=== PATIENT | female | born 1985 | race Caucasian/White ===

== ENCOUNTER 2021-11-16 08:41 | Outpatient (CLI) | payer BC, SELFPAY ==
--- NOTE | 2021-11-16 08:15 | CRLHL7_ITS ---
For Patients: As a result of the Century Cures Act, medical imaging exams and procedure reports are released immediately into your electronic medical record. You may view this report before your referring provider. If you have questions, please contact your health care provider. Indication: Fertility testing Technique: Hysterosalpingogram performed. Fluoroscopic time 31 seconds. IMPRESSION: Normal endometrial canal and fallopian tubes with spillage into the peritoneal cavity bilaterally. Dictated by Mohinder Neil MD @ 11/16/2021 9:27:11 AM (Electronically Signed)
--- NOTE | 2021-11-16 09:16 | PM.PROC ---
Procedure Note Time Seen by Provider: 08:30 Date Seen: 11/16/21 Date of procedure: 11/16/21 Will [facility] bill your pro fee for this procedure?: Yes Pre-op diagnosis: Infertility Procedure Description: DATE: 11/16/2021 PREPROCEDURE DIAGNOSIS: Infertility POSTPROCEDURE DIAGNOSIS: 1. Infertility 2. [Patent/blocked] fallopian tubes bilaterally. NAME OF PROCEDURE: Hysterosalpingogram. ANESTHESIA: None. COMPLICATIONS: None. PROCEDURE: After obtaining verbal consent, the patient was placed in the dorsal lithotomy position on the x-ray table. An open-sided bivalve speculum was introduced into the vagina and the cervix easily visualized. The cervix and vagina were then prepped with Betadine Os binder/cervical dilator used: No. A balloon tipped double-lumen catheter was then gently inserted through the cervical opening into the uterine cavity to the level of the fundus. The balloon was insufflated with 3 mL of air. The speculum was removed. The patient was repositioned in the supine position, covered, and the radiologist was called to the room. A hysterosalpingogram was then performed. A total of 8 cc of Optiray 300 water soluble contrast dye was injected through the double-lumen catheter under moderate pressure. There was immediate fill of the uterine cavity to the cornua and immediate fill of both fallopian tubes and free spillage of dye on both sides. The balloon was deflated. The catheter was removed. The patient tolerated the procedure well, though she did have moderate cramping discomfort during and just after the procedure. She was discharged to home in stable condition and make an appointment with her physician to review all of her lab results and procedure results. Surgeon: Elise Robledo MD Pathology: none sent Condition: stable
== END 2021-11-16 08:42 | disposition home or self-care (01) ==
LOC: RAD 08:42
PROVIDERS: Visit Provider Registered Nurse
DX: Z31.41 Encounter for fertility testing (principal)
CPT/HCPCS: 58340; 74740; A4649; Q9967

== ENCOUNTER 2022-02-23 11:24 | Outpatient (CLI) | payer BC, SELFPAY ==
[2022-03-01 18:46] LABS: Progesterone, HPLC-MS/MS 22.62 ng/mL
== END 2022-02-23 11:25 | disposition home or self-care (01) ==
PROVIDERS: Visit Provider Obstetrics & Gynecology
DX: N97.0 Female infertility associated with anovulation (principal)
CPT/HCPCS: 84144

== ENCOUNTER 2023-04-05 09:50 | Outpatient (CLI) | payer OTHER, SELFPAY ==
--- NOTE | 2023-04-05 10:15 | CRLHL7_ITS ---
For Patients: As a result of the Cures Act, medical imaging exams and procedure reports are released immediately into your electronic medical record. You may view this report before your referring provider. If you have questions, please contact your health care provider. INDICATION: First trimester scan, establish dates. COMPARISON: None. TECHNIQUE: Real-time mahan-scale imaging of the pelvis was performed. FINDINGS: Sonographic imaging demonstrates a single living intrauterine gestation. The embryo demonstrates a regular cardiac rate measuring 169 beats per minute. The embryo`s crown-rump length measurement of 2.2 cm corresponds to a gestational age of 8 weeks 6 days with a sonographic due date of 11/09/2023. There is a normal-appearing yolk sac. There are no gross abnormalities noted within the embryo at this early state of development. The gestational sac has a normal appearance. There is no evidence of a perigestational hemorrhage. The amount of fluid within the sac appears appropriate for gestational age. The cervix is closed. The myometrium appears normal. Bilateral ovarian cysts containing diffuse low level internal echoes measuring 4.1 and 2.6 cm on the right and 4.7 and 2.4 cm on the left. There are no suspicious fluid collections noted in the cul-de-sac. IMPRESSION: Single living intrauterine with sonographic gestational age 8 weeks 6 days and sonographic due date 11/09/2023. Bilateral complex ovarian cysts, probable endometriomas. Dictated by Mohinder Neil MD @ 04/05/2023 10:56:55 AM (Electronically Signed)
== END 2023-04-05 09:51 | disposition home or self-care (01) ==
LOC: US 09:51
PROVIDERS: Visit Provider Physician Assistant
DX: Z34.91 Encounter for supervision of normal pregnancy, unspecified, first trimester (principal); O34.81 Maternal care for other abnormalities of pelvic organs, first trimester; N83.292 Other ovarian cyst, left side; N83.291 Other ovarian cyst, right side; Z3A.08 8 weeks gestation of pregnancy
CPT/HCPCS: 76817

== ENCOUNTER 2023-04-05 10:57 | Outpatient (CLI) | payer OTHER, SELFPAY ==
[2023-04-05 13:43] LABS: Chlamydia DNA Amplified* NOT DETECTED (No Detected); GC DNA Amplified* NOT DETECTED (No Detected)
== END 2023-04-05 10:58 | disposition home or self-care (01) ==
PROVIDERS: Visit Provider Physician Assistant
DX: Z34.91 Encounter for supervision of normal pregnancy, unspecified, first trimester (principal)
CPT/HCPCS: 86592; 86703; 86704; 86706; 86762; 86787; 86803; 86850; 86900; 86901; 87086; 87340; 87491; 87591

== ENCOUNTER 2023-08-22 09:21 | Outpatient (CLI) | payer OTHER, SELFPAY ==
--- OUTSIDE RECORDS SUMMARY | 2023-08-28 08:05 | XMS_ITS | Encounter Summary ---
Author Name Unknown Organization [facility] Address [address] [place] [id number] Care Team Providers Care Tennis Desk Team Member Name Role Phone No Ref-Primary, Physician Primary Care Provider Encounter Details Date Type Department Care Team (Latest Contact Info) Description 06/17/2023 Travel Social History Tobacco Use Types Packs/Day Years Used Date Smoking Tobacco: Never Assessed Alcohol Use Standard Drinks/Week Comments No 0 (1 standard drink = 0.6 oz pur e alcohol) Adolescent Education Answer Date Record ed Getting School Help Needed Not on file 05/31 Estimated Date of Delivery Comme nts Yes 11/10/2023 Based on last me nstrual period of 02/03/2023 Sex and Gender Information Value Date Recorded Sex Assigned at Not on file Gender Identity Not on file Sexual Orientation Not on file documented as of this encounter Plan of Treatment Not on file documented as of this encounter Visit Diagnoses Not on filedocumented in this encounter Care Teams Tennis Desk Team Member Relationship Specialty Start Date End Date No Ref-Primary, Physician PCP - General 05/31/23 documented as of this encounter
--- OUTSIDE RECORDS SUMMARY | 2023-08-28 08:05 | XMS_ITS | Encounter Summary ---
Author Name Unknown Organization [facility] Address [address] [place] [address] Care Team Providers Care Ginseng Farmer Name Role Phone No Ref-Primary, Physician Primary Care Provider Reason for Referral * Diagnostic Imaging Ultrasound (Routine) - Pending Review Specialty Diagnoses / Procedures Referred By Contac t Referred To Contact Radiology. Diagnoses related condition, antepartum Procedures [facility] US Comprehensive Single Tiarra Bueno MD [address] [address] Referral ID Status Reason Start Date Expiration Date V isits Requested Visits Authorized [id number] Pending Review 05/31/2023 05/30/2024 1 1 ITY ASSURANCE/R&D LAB TECHNICIAN Reason for Visit * Diagnostic Imaging Ultrasound (Routine) - Pending Review Specialty Diagnoses / Procedures Referred By Contac t Referred To Contact Radiology. Diagnoses related condition, antepartum Procedures [facility] US Comprehensive Single Tiarra Bueno MD [facility] [address] [place] [address] Referral ID Status Reason Start Date Expiration Date V isits Requested Visits Authorized [id number] Pending Review 05/31/2023 05/30/2024 1 1 Encounter Details Date Type Department Care Team (Latest Contact Info) Description 06/17/2023 10:04 AM QUALITY ASSURANCE/R&D LAB TECHNICIAN - 06/17/2023 11:59 PM QUALITY ASSURANCE/R&D LAB TECHNICIAN Hospital Encounter [facility]aternal [facility] [address] [place] [address] Tiarra Bueno MD [facility] [address] [place] [address] Janet Hoang MD [address] [facility] [address] [place], [place] [id number] related condition, antepartum Discharge Disposition: Home or Self Care Social History Tobacco Use Types Packs/Day Years [...] on file documented as of this encounter Medications at Time of Discharge Medication Sig Dispensed Refills Start Date End Date HYDROcodone-acetaminophe n (NORCO) 5-325 MG per tablet Take 1-2 tablets by mouth every 4 hours as needed for moderate to severe pain 15 tablet 0 08/20/2015 documented as of this encounter Plan of Treatment Not on file documented as of this encounter Procedures Procedure Name Priority Date/Time Associated Diagnosis Comments [facility] SINGLE Routine 06/17/2023 11:01 AM QUALITY ASSURANCE/R&D LAB TECHNICIAN related condition, antepartum documented in this encounter Results * [facility] Single (06/17/2023 11:01 AM QUALITY ASSURANCE/R&D LAB TECHNICIAN) Anatomical Region Laterality Modality Ultrasound 06/17/2023 10:1 9 AM QUALITY ASSURANCE/R&D LAB TECHNICIAN Impressions 06/17/2023 11:20 AM QUALITY ASSURANCE/R&D LAB TECHNICIAN IMPRESSION ----- 1. Preston intrauterine at 19w 1d gestational age here for evaluation of anatomy. 2. No anomalies commonly detected by ultrasound or soft markers of aneuploidy were identified in the detailed anatomic survey within the limits of ultrasound. 3. Growth parameters and estimated weight were consistent with established dates. 4. The amniotic fluid volume appeared normal. 5. On transabdominal imaging the cervix appears long and closed. Narrative 06/17/2023 11:20 AM QUALITY ASSURANCE/R&D LAB TECHNICIAN ?Comprehensive ----- Pat. Name: MACIEL LAVINIA ? Study Date: ??06/17/2023 10:19am Pat. NO: ??[id number] ?Referring ??MD: TIARRA VU Site: [facility] ? Petrology Teacher: Susanna Huntley RDMS : ??1985 ?Age: ?? 37 ----- INDICATION ----- Advanced Maternal Age--Primigravida. Declined screening. METHOD ----- Transabdominal ultrasound examination. View: Sufficient ----- Preston . Number of fetuses: 1 DATING ----- ? Date ?Details ?Gest. age ?CASE LMP ?02/03/2023 ?Cycle: regular cycle ?19 w + 1 d ? 11/10/2023 Prior assessment ? 04/05/2023 ? GA: 8 w + 6 d ? 19 w + 2 d ? 11/09/2023 U/S ? 06/17/2023 ?based upon AC, BPD, Femur, HC ? 19 w + 2 d ? 11/09/2023 Assigned dating ?Dating performed on 06/17/2023, based on the LMP ?19 w + 1 d ? 11/10/2023 GENERAL EVALUATION ----- Cardiac activity present. FHR 138 bpm. movements present. Presentation tranverse with head to maternal left. Placenta posterior, no previa > 2 cm from internal os . Umbilical cord Cord vessels: 3 vessel cord. Insertion site: normal insertion. Amniotic fluid Amount of AF: normal. MVP 5.8 cm. BIOMETRY ----- Main Biometry: BPD ?44.4 ?mm ? 19w 3d ?Hadlock OFD ?59.0 ?mm ? 19w 2d ?Nicolaides HC ?165.4 ?mm ?19w 2d ?Hadlock Cerebellum tr ?19.9 ? mm ?19w 0d ?Nicolaides AC ?138.7 ?mm ?19w 2d ?50% ?Hadlock Femur ?29.0 ? mm ?18w 6d ?Hadlock Humerus ?28.2 ?mm ? 19w 1d ?Dulce Weight Calculation: EFW ? 276 ? g ? 44% ?Hadlock EFW (lb,oz) ? 0 lb 10 ? oz EFW by ?Hadlock ([id number]) Head / Face / Neck Biometry: Wardrobe Mistress ? 5.4 ? mm CM ?4.5 ? mm Nasal bone ? 6.6 ? mm Nuchal fold ? 4.1 ? mm ANATOMY ----- The following structures appear normal: Head / Neck ? Cranium. Head size. Head shape. Lateral ventricles. Choroid plexus. Midline falx. Cavum septi pellucidi. Cerebellum. Cisterna magna. ? Parenchyma. Thalami. Vermis. ? Neck. Nuchal fold. Face ? Lips. Profile. Nose. Maxilla. Mandible. Orbits. Lens. Heart / Thorax ?4-chamber view. RVOT view. LVOT view. Situs. Aortic arch view. Bicaval view. Ductal arch view. Superior vena cava. Inferior vena cava. 3-vessel ? view. 0-gwykts-lthprlf view. Cardiac position. Cardiac size. Cardiac rhythm. ? Right lung. Left lung. Diaphragm. Abdomen ? Abdominal wall. Cord insertion. Stomach. Kidneys. Bladder. Liver. Bowel. Genitals. Spine ?Cervical spine. Thoracic spine. Lumbar spine. Sacral spine. Extremities / Skeleton ?Right arm. Right hand. Left arm. Left hand. Right leg. Right foot. Left leg. Left foot. Gender: male. MATERNAL STRUCTURES ----- Cervix ?Visualized ? Appearance: Appears Closed ? Approach - Transabdominal: Cervical length 45.0 mm Right Ovary ?Not visualized Left Ovary ?Not visualized RECOMMENDATION ----- Thank-you for referring your patient for a comprehensive ultrasound. I discussed the findings on today's ultrasound with the patient. I reviewed the limitations of ultrasound both in detecting aneuploidy and structural abnormalities. Ultrasound can routinely detect 80-90% of structural abnormalities. She has not had genetic screening this , genetic screening/testing options were reviewed which she is not interested in today. Further ultrasound studies as clinically indicated. Return to primary provider for continued care. If you have questions regarding today's evaluation or if we can be of further service, please contact the [facility]. anomalies may be present but not detected I spent a total of 15 minutes on the date of this encounter including preparing to see the patient (reviewing medical records/tests), counseling and discussing the plan of care, documenting the visit in the electronic medical record, and communicating with other health skin care therapist and/or care coordination. Procedure Note Janet Hoang MD - 06/17/2023 Comprehensive ----- Pat. Name: LAVINIA ST Study Date: 06/17/2023 10:19am Pat. NO: [id number] Referring MD: TIARRA BUENO Site: [facility] Petrology Teacher: Susanna Hutnley RDMS : 1985 Age: 37 ----- INDICATION ----- Advanced Maternal Age--Primigravida. Declined screening. METHOD ----- Transabdominal ultrasound examination. View: Sufficient ----- Preston . Number of fetuses: 1 DATING ----- DateDetailsGest. age CASE LMP 02/03/2023ycle: regular cycle19 w + 1 d 11/10/2023 Prior assessment 04/05/2023 GA: 8 w +6 d19 w + 2 d 11/09/2023 U/S 06/17/2023ased upon AC, BPD, Femur, HC19 w + 2 d 11/09/2023 Assigned dating Dating performed on 06/17/2023, based onthe LMP 19 w+ 1 d 11/10/2023 GENERAL EVALUATION ----- Cardiac activity present. FHR 138 bpm. movements present. Presentation tranverse with head to maternal left. Placenta posterior, no previa > 2 cm from internal os . Umbilical cord Cord vessels: 3 vessel cord. Insertion site: normalinsertion. Amniotic fluid Amount of AF: normal. MVP 5.8 cm. BIOMETRY ----- Main Biometry: BPD 44.4 mm19w 3d Hadlock OFD 59.0 mm19w 2d Nicolaides HC 165.4 mm19w 2d Hadlock Cerebellum tr 19.9 mm19w 0d Nicolaides AC 138.7 mm19w 2d 50% Hadlock Femur 29.0 mm18w 6d Hadlock Humerus 28.2 mm19w 1d Dulce Weight Calculation: EFW 276 g44% Hadlock EFW (lb,oz) 0 lb 10 oz EFW by Hadlock ([id number]) Head / Face / Neck Biometry: Wardrobe Mistress 5.4 mm CM 4.5 mm Nasal bone 6.6 mm Nuchal fold 4.1 mm ANATOMY ----- The following structures appear normal: Head / Neck Cranium. Head size. Head shape.Lateral ventricles. Choroid plexus. Midline falx. Cavum septi pellucidi.Cerebellum. Cisterna magna. Parenchyma. Thalami. Vermis. Neck. Nuchal fold. Face Lips. Profile. Nose. Maxilla.Mandible. Orbits. Lens. Heart / Thorax 4-chamber view. RVOT view. LVOT view.Situs. Aortic arch view. Bicaval view. Ductal arch view. Superior venacava. Inferior vena cava. 3-vessel view. 8-mvqlha-smsgxey view.Cardiac position. Cardiac size. Cardiac rhythm. Right lung. Left lung.Diaphragm. Abdomen Abdominal wall. Cord insertion.Stomach. Kidneys. Bladder. Liver. Bowel. Genitals. Spine Cervical spine. Thoracic spine.Lumbar spine. Sacral spine. Extremities / Skeleton Right arm. Right hand. Left arm. Lef[place]and. Right leg. Right foot. Left leg. Left foot. Gender: male. MATERNAL STRUCTURES ----- Cervix Visualized Appearance: Appears Closed Approach - Transabdominal:Cervical length 45.0 mm Right Ovary Not visualized Left Ovary Not visualized RECOMMENDATION ----- Thank-you for referring your patient for a comprehensive ultrasound. I discussed the findings on today's ultrasound with the patient. Ireviewed the limitations of ultrasound both in detecting aneuploidy andstructural abnormalities. Ultrasound can routinely detect 80-90% of structural abnormalities. She has not hadgenetic screening this , genetic screening/testing options werereviewed which she is not interested in today. Further ultrasound studies as clinically indicated. Return to primary provider for continued care. If you have questions regarding today's evaluation or if we can be offurther service, please contact the [facility]. anomalies may be present but not detected I spent a total of 15 minutes on the date of this encounter includingpreparing to see the patient (reviewing medical records/tests), counselingand discussing the plan of care, documenting the visit in the electronic medical record, andcommunicating with other health skin care therapist and/or carecoordination. IMPRESSION ----- 1. Preston intrauterine at 19w 1d gestational age here forevaluation of anatomy. 2. No anomalies commonly detected by ultrasound or soft markers ofaneuploidy were identified in the detailed anatomic survey withinthe limits of ultrasound. 3. Growth parameters and estimated weight were consistent withestablished dates. 4. The amniotic fluid volume appeared normal. 5. On transabdominal imaging the cervix appears long and closed. Tiarra Vu MD [facility] US ORDERABLE S documented in this encounter Visit Diagnoses Diagnosis related condition, antepartum documented in this encounter Care Teams Ginseng Farmer Relationship Specialty Start Date End Date No Ref-Primary, Physician PCP - General 05/31/23 documented as of this encounter
--- OUTSIDE RECORDS SUMMARY | 2023-08-28 08:05 | XMS_ITS | Encounter Summary ---
Author Name Unknown Organization [facility] Address [address] [place] [address] Care Team Providers Care Watchguard Name Role Phone No Ref-Primary, Physician Primary Care Provider Reason for Referral * Diagnostic Imaging Ultrasound (Routine) - Pending Review Specialty Diagnoses / Procedures Referred By Contac t Referred To Contact Radiology. Diagnoses related condition, antepartum Procedures [facility] US Comprehensive Single Tiarra Bueno MD [facility] [address] [place] [address] Referral ID Status Reason Start Date Expiration Date V isits Requested Visits Authorized [id number] Pending Review 05/31/2023 05/30/2024 1 1 NCIAL COMPLIANCE EXAMINER * Consultation (Routine: Next available opening) - Pending Review Specialty Diagnoses / Procedures Referred By Contac t Referred To Contact Diagnoses related condition, antepartum Tiarra Bueno MD [facility] [address] [place] [address] [facility] [address] [place] [address] Referral ID Status Reason Start Date Expiration Date V isits Requested Visits Authorized [id number] Pending Review 05/31/2023 05/30/2024 1 1 Question Answer Preferred Location: [facility] CASE 11/10/2023 Ultrasound Comprehensive US (>than 18 weeks GA) US PROC NONE MFM Issue Advanced Maternal Age *MUST request Genetic Counseling - AMA MFM MD Consultation (unrelated to Ultrasound findings): No Inflammatory Bowel Disease Clinic: Joint MFM and GI Consultation: No Chronic Kidney Disease: Joint INESM and Nephrology Consultation No Genetic Counseling Consultation: No fax [facility] - Tiarra Bueno - [phone] Comments There is no height or weight on file to calculate BMI. >> Patient may proceed with recommendations for further testing as directed by the Maternal Medicine Specialist >> >> If requesting Echo: MFM will determine appropriate location for exam due to indication. Please be aware that coverage of these services is subject to the terms and limitations of your health insurance plan. Call member services at your health plan with any benefit or coverage questions. NCIAL COMPLIANCE EXAMINER Encounter Details Date Type Department Care Team (Latest Contact Info) Description 05/31/2023 Transcribe Orders [facility] [address] [place] [address] Tiarra Bueno MD [facility] [address] [address] related condition, antepartum (Primary Dx) Social History Tobacco Use Types Packs/Day Years Used Date Smoking Tobacco: Never Assessed Alcohol Use Standard Drinks/Week Comments No 0 (1 standard drink = 0.6 oz pur e alcohol) Adolescent Education Answer Date Record ed Getting School Help Needed Not on file 05/31 Sex and Gender Information Value Date Recorded Sex Assigned at Not on file Gender Identity Not on file Sexual Orientation Not on file documented as of this encounter Plan of Treatment Scheduled Referrals Name Type Priority Associated Diagnoses Orde r Schedule [facility] Referral - Referral Routine: Next available opening Related Condition, Antepartum Expected: 05/31/2023 (Approximate), Expires: 11/27/2023 documented as of this encounter Results * [facility] US Comprehensive Single (06/17/2023 11:01 AM FINANCIAL COMPLIANCE EXAMINER) Anatomical Region Laterality Modality Ultrasound 06/17/2023 10:1 9 AM FINANCIAL COMPLIANCE EXAMINER Impressions 06/17/2023 11:20 AM FINANCIAL COMPLIANCE EXAMINER IMPRESSION ----- 1. Preston intrauterine at 19w [...] long and closed. Narrative 06/17/2023 11:20 AM FINANCIAL COMPLIANCE EXAMINER ?Comprehensive ----- Pat. Name: LAVINIA ST ? Study Date: ??06/17/2023 10:19am Pat. NO: ??[id number] ?Referring ??MD: TIARRA BUENO Site: ??[facility] ? Janitorial Account Manager: Susanna Huntley RDMS : ??1985 ?Age: ?? [...] lb 10 ? oz EFW by ?Hadlock ([id number]) Head / Face / Neck Biometry: C Software Engineer ? 5.4 ? mm CM ?4.5 ? [...] cava. Inferior vena cava. 3-vessel ? view. 8-gyupko-isxnyyf view. Cardiac position. Cardiac size. Cardiac rhythm. [...] medical record, and communicating with other health chronic care nurse and/or care coordination. Procedure Note Janet Hoang MD - 06/17/2023 Comprehensive ----- Pat. Name: LAVINIA ST Study Date: 06/17/2023 10:19am Pat. NO: [id number] Referring MD: TIARRA BUENO Site: [facility] Janitorial Account Manager: Susanna Huntley RDMS : 1985 Age: 37 ----- INDICATION [...] 0 lb 10 oz EFW by Hadlock ([id number]) Head / Face / Neck Biometry: C Software Engineer 5.4 mm CM 4.5 mm Nasal bone [...] Superior venacava. Inferior vena cava. 3-vessel view. 6-nczhzi-hucqmdo view.Cardiac position. Cardiac size. Cardiac rhythm. Right [...] electronic medical record, andcommunicating with other health chronic care nurse and/or carecoordination. IMPRESSION ----- 1. Preston intrauterine [...] the cervix appears long and closed. Tiarra Milton [facility] US ORDERABLE S documented in this encounter Visit Diagnoses Diagnosis related condition, antepartum- Primary related condition, antepartum documented in this encounter Care Teams Watchguard Relationship Specialty Start Date End Date No Ref-Primary, Physician PCP - General 05/31/23 documented as of this encounter
--- OUTSIDE RECORDS SUMMARY | 2023-08-28 08:05 | XMS_ITS | Encounter Summary ---
Author Name Unknown Organization [facility] Address [address] [place] [address] Care Team Providers Care Assembler Radio And Electrical Name Role Phone No Ref-Primary, Physician Primary Care Provider Encounter Details Date Type Department Care Team (Latest Contact Info) Description 06/10/2023 Travel Social History Tobacco Use Types Packs/Day [...] on filedocumented in this encounter Care Teams Assembler Radio And Electrical Relationship Specialty Start Date End Date No Ref-Primary, Physician PCP - General 05/31/23 documented as of this encounter
--- OUTSIDE RECORDS SUMMARY | 2023-08-28 08:05 | XMS_ITS | Encounter Summary ---
Author Name Unknown Organization [place] Address [facility] [place] [address] Care Team Providers Care Pyrotechnic Mixer Name Role Phone No Ref-Primary, Physician Primary Care Provider Reason for Visit * Reason Comments Ultrasound L2-AMA Encounter Details Date Type Department Care Team (Late st Contact Info) Description 06/17/2023 10:45 AM LENS CLEANER Office Visit [facility] Maternal Medicine Center [place] [address] [place] [address] Tiarra Rose MD [facility] [address] [place] [address] Janet Hoang MD [address] [place] [address] [address] [place] [address] Primigravida of advanced maternal age in second trimester (Primary Dx) Social History Tobacco Use Types [...] on file documented as of this encounter Progress Notes * Janet Hoang MD - 06/17/2023 10:45 AM CST Please see Imaging tab under Chart Review for details of today's visit. Janet Hoang CLEANER documented in this encounter Nursing Notes * Selena Lazcano, RN - 06/17/2023 10:45 AM CST Patient presents to [facility] for L2 at 19w1d due to AMA. Denies LOF, vaginal bleeding or cramping/contractions. SBAR given to [facility] MD, see their note in Epic. CLEANER documented in this encounter Plan of Treatment Not on file documented as of this encounter Visit Diagnoses Diagnosis Primigravida of advanced maternal age in second trimester- Primary documented in this encounter Care Teams Pyrotechnic Mixer Relationship Specialty Start Date End Date No Ref-Primary, Physician PCP - General 05/31/23 documented as of this encounter
--- OUTSIDE RECORDS SUMMARY | 2023-08-28 08:05 | XMS_ITS | Clinical Summary ---
Author Name Unknown [facility] Address [address] [place] [address] Care Team Providers Care Air Quality Chemist Name Role Phone No Ref-Primary, Physician Primary Care Provider Allergies No known active allergies Medications Medication Sig Dispensed Refills Start Date End Date Status HYDROcodone-acetamin ophen (NORCO) 5-325 MG per tablet Take 1-2 tablets by mouth every 4 hours as needed for moderate to severe pain 15 tablet 0 08/20/2015 Active Encounters Date Type Department Care Team Description 06/17/2023 10:45 AM FINANCIAL AIDS OFFICER Office Visit [facility] Maternal Medicine [place] [address] [place] [address] Tiarra Bueno MD Burn, Martina, MD Primigravida of advanced maternal age in second trimester (Primary Dx) 06/17/2023 10:04 AM FINANCIAL AIDS OFFICER - 06/17/2023 11:59 PM FINANCIAL AIDS OFFICER Hospital Encounter [facility] Maternal Medicine [place] [address] [place] [address] Tiarra Bueno MD Burn, Martina, MD related condition, antepartum Discharge Disposition: Home or Self Care 06/17/2023 Travel 06/10/2023 Travel 06/10/2023 PRE VISIT [facility] Medicine [place] [address] [place] [address] Erin Medeiros RN Ultrasound (L2-AMA) 05/31/2023 Transcribe Orders [facility] Medicine [place] [address] [place] [phone] Tiarra Bueno MD related condition, antepartum (Primary Dx) 05/30/2023 Medical Correspondence [facility] Info Mgmt [facility] [address] [place] [address] Scan, Non-Provider from Last 3 Months Social History Tobacco Use Types Packs/Day Years [...] on file Sexual Orientation Not on file Last Filed Vital Signs Vital Sign Reading Time Taken Comments Blood Pressure 110/73 08/20/2015 4:00 PM CDT Pulse - - Temperature 37 ??C (98.6 ??F) 08/20/2015 1:34 PM CDT Respiratory Rate 16 08/20/2015 1:34 PM CDT Oxygen Saturation 97% 08/20/2015 3:45 PM CDT Inhaled Oxygen Concentration - - Weight - - Height - - Body Mass Index - - Plan of Treatment Health Maintenance Due Date Last Done Comments ADVANCE CARE PLANNING 1985 ANNUAL REVIEW OF HM ORDERS 1985 GLUCOSE 1985 YEARLY PREVENTIVE VISIT 1985 DTAP/TDAP/TD IMMUNIZATION (6 - Tdap) 11/29/1998 11/28/1998, 01/07/1991, 12/13/1987, Additional history exists HIV SCREENING 2000 HEPATITIS C SCREENING 12/15/2003 PAP 2006 COVID-19 Vaccine ( season) 2023 INFLUENZA VACCINE (#1) 2023 02/15/2012 MATERNAL SCREENING DISCUSSION 04/14/2023 PHQ-2 (once per calendar year) 2023 OBGCT (OB) 07/21/2023 IPV IMMUNIZATION Completed 01/07/1991, 06/1987, 04/22/1986, Additional history exists HEPATITIS B IMMUNIZATION Completed 003, 12/29/2001, 12/01/2001 HPV IMMUNIZATION Aged Out No longer e ligible based on patient's age to complete this topic MENINGITIS IMMUNIZATION Aged Out No l onger eligible based on patient's age to complete this topic Pneumococcal Vaccine: Pediatrics (0 to 5 Years) and At-Risk Patients (6 to 64 Years) Aged Out No longer eligible based on patient's age to complete this topic RSV MONOCLONAL ANTIBODY Aged Out No l onger eligible based on patient's age to complete this topic RSV VACCINE ( & 60+) (No Doses Required) Completed Procedures Procedure Name Priority Date/Time Associated Diagnosis Comments [facility] COMPREHENSIVE SINGLE Routine 06/17/2023 11:01 AM FINANCIAL AIDS OFFICER related condition, antepartum from Last 3 Months Results * [facility] Comprehensive Single (06/17/2023 11:01 AM FINANCIAL AIDS OFFICER) Anatomical Region Laterality Modality Ultrasound 06/17/2023 10:1 9 AM FINANCIAL AIDS OFFICER Impressions 06/17/2023 11:20 AM FINANCIAL AIDS OFFICER IMPRESSION ----- 1. Preston intrauterine at 19w [...] and closed. Narrative 06/17/2023 11:20 AM FINANCIAL AIDS OFFICER ?Comprehensive ----- Pat. Name: LAVINIA ST ? Study Date: ??06/17/2023 10:19am Pat. NO: ??[id number] ?Referring ??MD: TIARRA BUENO Site: ??[facility] ? Chief Mate: Susanna Huntley RDMS : ??1985 ?Age: ?? [...] Biometry: BPD ?44.4 ?mm ? 19w 3d ?Agatha KRAUSE ?59.0 ?mm ? 19w 2d ?Nicolaides HC ?165.4 ?mm ?19w 2d ?Hadlock Cerebellum tr ?19.9 ? mm ?19w 0d ?Nicolaides AC ?138.7 ?mm ?19w 2d ?50% ?Hadlock Femur ?29.0 ? mm ?18w 6d ?Hadlock Humerus ?28.2 ?mm ? 19w 1d ?[place] Weight Calculation: EFW ? 276 ? g ? 44% ?Hadlock EFW (lb,oz) ? 0 lb 10 ? oz EFW by ?Hadlock ([id number]) Head / Face / Neck Biometry: Treatment Counselor ? 5.4 ? mm CM ?4.5 ? [...] cava. Inferior vena cava. 3-vessel ? view. 8-smofsm-rivicnv view. Cardiac position. Cardiac size. Cardiac rhythm. [...] medical record, and communicating with other health care associate and/or care coordination. Procedure Note Janet Hoang MD - 06/17/2023 Comprehensive ----- Pat. Name: LAVINIA ST Study Date: 06/17/2023 10:19am Pat. NO: [id number] Referring MD: TIARRA BUENO Site: [facility] Chief Mate: Susanna Huntley RDMS : 1985 Age: 37 [...] 0 lb 10 oz EFW by Hadlock ([id number]) Head / Face / Neck Biometry: Treatment Counselor 5.4 mm CM 4.5 mm Nasal bone [...] Superior venacava. Inferior vena cava. 3-vessel view. 2-gaauyf-ypoiwub view.Cardiac position. Cardiac size. Cardiac rhythm. Right [...] electronic medical record, andcommunicating with other health care associate and/or carecoordination. IMPRESSION ----- 1. Preston intrauterine [...] appears long and closed. Tiarra Milton GUTIERREZ [facility] ORDERABLE S from Last 3 Months Care Teams Air Quality Chemist Relationship Specialty Start Date End Date No Ref-Primary, Physician PCP - General 05/31/23
--- OUTSIDE RECORDS SUMMARY | 2023-08-28 08:05 | XMS_ITS | Encounter Summary ---
Author Name Unknown Organization [facility] Address [address] [place] [address] Care Team Providers Care Channel Cementer Outsole Machine Name Role Phone No Ref-Primary, Physician Primary Care Provider Reason for Visit * Reason Comments Ultrasound L2-AMA Encounter Details Date Type Department Care Team (Late st Contact Info) Description 06/10/[address] [facility] Maternal Medicine Center [place] [address] [place] [address] Erin Medeiros, RN Ultrasound (L2-AMA) Social History Tobacco Use Types Packs/Day Years [...] on filedocumented in this encounter Care Teams Channel Cementer Outsole Machine Relationship Specialty Start Date End Date No Ref-Primary, Physician PCP - General 05/31/23 documented as of this encounter
--- OUTSIDE RECORDS SUMMARY | 2023-08-28 08:05 | XMS_ITS | Referral Summary ---
Author Name Unknown [facility] Address [address] [place] [address] Care Team Providers Care Hack Saw Operator Name Role Phone No Ref-Primary, Physician Primary Care Provider Encounters Date Type Department Care Team Description 06/17/2023 Travel 06/17/2023 10:45 AM DROP TESTER Office Visit [facility] Maternal Medicine [place] [address] [place] [phone] Tiarra Bueno MD Burn, Martina, MD Primigravida of advanced maternal age in second trimester (Primary Dx) 06/17/2023 10:04 AM DROP TESTER - 06/17/2023 11:59 PM DROP TESTER Hospital Encounter [facility] Medicine [place] [address] [place] [phone] Tiarra Bueno MD Burn, Martina, MD related condition, antepartum Discharge Disposition: Home or Self Care 06/10/2023 Travel 06/10/2023 PRE VISIT [facility] Maternal Medicine [place] [address] [facility] [address] [place] [phone] Erin Meediros RN Ultrasound (L2-AMA) 05/31/2023 Transcribe Orders [facility] Medicine [place] [address] [facility] [address] [place] [phone] Tiarra Bueno MD related condition, antepartum (Primary Dx) 05/30/2023 Medical Correspondence [facility] [address] [place] [address] Scan, Non-Provider from Last 3 Months Allergies No known active allergies Medications Medication Sig Dispensed Refills Start Date End Date Status HYDROcodone-acetamin ophen (NORCO) 5-325 MG per tablet Take 1-2 tablets by mouth every 4 hours as needed for moderate to severe pain 15 tablet 0 08/20/2015 Active Social History Tobacco Use Types Packs/Day Years [...] Mass Index - - Plan of Treatment Not on file Procedures Procedure Name Priority Date/Time Associated Diagnosis Comments [facility] SINGLE Routine 06/17/2023 11:01 AM DROP TESTER related condition, antepartum from Last 3 Months Results * [facility] Comprehensive Single (06/17/2023 11:01 AM DROP TESTER) Anatomical Region Laterality Modality Ultrasound 06/17/2023 10:1 9 AM DROP TESTER Impressions 06/17/2023 11:20 AM DROP TESTER IMPRESSION ----- 1. Preston intrauterine at 19w [...] long and closed. Narrative 06/17/2023 11:20 AM DROP TESTER ?Comprehensive ----- Pat. Name: KURT STHEL ? Study Date: ??06/17/2023 10:19am Pat. NO: ??[id number] ?Referring ??: TIARRA BUENO Site: ??[facility] ? [employer] Technical Assistant: Susanna Huntley RDMS : ??1985 ?Age: ?? [...] lb 10 ? oz EFW by ?Hadlock ([id number]-[id number]-FL) Head / Face / Neck Biometry: Molecular Spectroscopist ? 5.4 ? mm CM ?4.5 ? [...] cava. Inferior vena cava. 3-vessel ? view. 7-zeobej-jhwwqoi view. Cardiac position. Cardiac size. Cardiac rhythm. [...] medical record, and communicating with other health daycare worker and/or care coordination. Procedure Note Janet Hoang MD - 06/17/2023 Comprehensive ----- Pat. Name: LAVINIA ST Study Date: 06/17/2023 10:19am Pat. NO: [id number] Referring MD: TIARRA BUENO Site: [facility] [employer] Technical Assistant: Susanna Huntley RDMS : 1985 Age: 37 [...] 0 lb 10 oz EFW by Hadlock ([id number]-[id number]-FL) Head / Face / Neck Biometry: Molecular Spectroscopist 5.4 mm CM 4.5 mm Nasal bone [...] Superior venacava. Inferior vena cava. 3-vessel view. 6-fgjdqu-ontgwhv view.Cardiac position. Cardiac size. Cardiac rhythm. Right [...] electronic medical record, andcommunicating with other health daycare worker and/or carecoordination. IMPRESSION ----- 1. Preston intrauterine [...] cervix appears long and closed. Tiarra Milton [facility] US ORDERABLE S from Last 3 Months Care Teams Hack Saw Operator Relationship Specialty Start Date End Date No Ref-Primary, Physician PCP - General 05/31/23
--- OUTSIDE RECORDS SUMMARY | 2023-08-28 08:05 | XMS_ITS | Encounter Summary ---
Author Name Unknown Organization [place] Address [address] [place] [address]. [place] [address] Care Team Providers Care Optical Goods Drill Operator Name Role Phone No Ref-Primary, Physician Primary Care Provider Encounter Details Date Type Department Care Team ([facility] st Contact Info) Description 05/30/[address] [facility] Info [facility] [address] [place] [phone] Scan, Non-Provider Social History Tobacco Use Types Packs/Day Years [...] on filedocumented in this encounter Care Teams Optical Goods Drill Operator Relationship Specialty Start Date End Date No Ref-Primary, Physician PCP - General 05/31/23 documented as of this encounter
== END 2023-08-22 09:22 | disposition home or self-care (01) ==
LOC: NFLDREF 08-28 08:04
PROVIDERS: Visit Provider Obstetrics & Gynecology
DX: Z34.92 Encounter for supervision of normal pregnancy, unspecified, second trimester (principal)
CPT/HCPCS: 86592

== ENCOUNTER 2023-08-30 08:06 | Outpatient (CLI) | payer OTHER, MEDICAID, SELFPAY ==
--- OUTSIDE RECORDS SUMMARY | 2023-09-02 07:17 | XMS_ITS | Encounter Summary ---
Author Name Unknown Organization [place] Address [address] [place] [address] Care Team Providers Care Piano Mover Name Role Phone No Ref-Primary, Physician Primary Care Provider Reason for Visit * Reason Comments Ultrasound L2-AMA Encounter Details Date Type Department Care Team (Late st Contact Info) Description 06/10/2023 PRE VISIT [facility] Maternal Medicine Center [place] [address] [place] [address] Erin Medeiros, RN Ultrasound (L2-AMA) [...] on filedocumented in this encounter Care Teams Piano Mover Relationship Specialty Start Date End Date No Ref-Primary, Physician PCP - General 05/31/23 documented as of this encounter
--- OUTSIDE RECORDS SUMMARY | 2023-09-02 07:17 | XMS_ITS | Clinical Summary ---
Author Name Unknown [facility] Address [address] [place] [address] Care Team Providers Care Farm Machinery Mechanic Name Role Phone No Ref-Primary, Physician Primary Care Provider Allergies No known active allergies Medications Medication Sig Dispensed Refills Start Date End Date Status HYDROcodone-acetamin ophen (NORCO) 5-325 MG per tablet Take 1-2 tablets by mouth every 4 hours as needed for moderate to severe pain 15 tablet 0 08/20/2015 Active Encounters Date Type Department Care Team Description 06/17/2023 10:45 AM VETERINARY PHYSIOLOGIST Office Visit [facility] Maternal Medicine [facility] [address] [place] [phone] Tiarra Bueno MD Burn, Martina, MD Primigravida of advanced maternal age in second trimester (Primary Dx) 06/17/2023 10:04 AM VETERINARY PHYSIOLOGIST - 06/17/2023 11:59 PM VETERINARY PHYSIOLOGIST Hospital Encounter [facility] Maternal Medicine [facility] [address] [place] [address] Tiarra Bueno MD Burn, Martina, MD related condition, antepartum Discharge Disposition: Home or Self Care 06/17/2023 Travel 06/10/2023 Travel 06/10/2023 PRE VISIT [facility] Maternal Medicine [facility] [address] [place] [address] Erin Medeiros RN Ultrasound (L2-AMA) from Last 3 Months Social History Tobacco [...] Procedure Name Priority Date/Time Associated Diagnosis Comments [facility] US COMPREHENSIVE SINGLE Routine 06/17/2023 11:01 AM VETERINARY PHYSIOLOGIST related condition, antepartum from Last 3 Months Results * [facility] US Comprehensive Single (06/17/2023 11:01 AM VETERINARY PHYSIOLOGIST) Anatomical Region Laterality Modality Ultrasound 06/17/2023 10:1 9 AM VETERINARY PHYSIOLOGIST Impressions 06/17/2023 11:20 AM VETERINARY PHYSIOLOGIST IMPRESSION ----- 1. Preston intrauterine at 19w [...] long and closed. Narrative 06/17/2023 11:20 AM VETERINARY PHYSIOLOGIST ?Comprehensive ----- Pat. Name: LAVINIA ST ? Study Date: ??06/17/2023 10:19am Pat. NO: ??[id number] ?Referring ??MD: TIARRA BUENO Site: ??[facility] ? Prosthetics Technician: Susanna Huntley RDMS : ??1985 ?Age: ?? [...] lb 10 ? oz EFW by ?Hadlock ([id number]-FL) Head / Face / Neck Biometry: Ice Cream Server ? 5.4 ? mm CM ?4.5 ? [...] cava. Inferior vena cava. 3-vessel ? view. 4-pkopmy-zwsllqn view. Cardiac position. Cardiac size. Cardiac rhythm. [...] medical record, and communicating with other health client care representative and/or care coordination. Procedure Note Janet Hoang MD - 06/17/2023 Comprehensive ----- Pat. Name: LAVINIA ST Study Date: 06/17/2023 10:19am Pat. NO: [id number] Referring MD: TIARRA BUENO Site: [facility] Prosthetics Technician: Susanna Huntley RDMS : 1985 Age: 37 [...] 0 lb 10 oz EFW by Hadlock ([id number]-FL) Head / Face / Neck Biometry: Ice Cream Server 5.4 mm CM 4.5 mm Nasal bone [...] Superior venacava. Inferior vena cava. 3-vessel view. 8-lopdtv-ednbysz view.Cardiac position. Cardiac size. Cardiac rhythm. Right [...] electronic medical record, andcommunicating with other health client care representative and/or carecoordination. IMPRESSION ----- 1. Preston intrauterine [...] appears long and closed. Tiarra Milton GUTIERREZ [facility] US ORDERABLE S from Last 3 Months Care Teams Farm Machinery Mechanic Relationship Specialty Start Date End Date No Ref-Primary, Physician PCP - General 05/31/23
--- OUTSIDE RECORDS SUMMARY | 2023-09-02 07:17 | XMS_ITS | Referral Summary ---
Author Name Unknown Organization [place] Address [address] [place] [address] Care Team Providers Care Grounds Maintenance Manager Name Role Phone No Ref-Primary, Physician Primary Care Provider Encounters Date Type Department Care Team Description 06/17/2023 Travel 06/17/2023 10:45 AM GREETING CARD WRITER Office Visit [facility] Maternal Medicine [place] [address] [place] [address] Tiarra Bueno MD Burn, Martina, MD Primigravida of advanced maternal age in second trimester (Primary Dx) 06/17/2023 10:04 AM GREETING CARD WRITER - 06/17/2023 11:59 PM GREETING CARD WRITER Hospital Encounter [facility] Medicine [place] [address] [facility] [address] [place] [address] Tiarra Bueno MD Burn, Martina, MD related condition, antepartum Discharge Disposition: Home or Self Care 06/10/2023 Travel 06/10/2023 PRE VISIT [facility] Medicine [place] [address] [facility] [address] [place] [address] Erin Medeiros RN Ultrasound (L2-AMA) from Last 3 Months Allergies No known [...] Procedure Name Priority Date/Time Associated Diagnosis Comments [facility] US COMPREHENSIVE SINGLE Routine 06/17/2023 11:01 AM GREETING CARD WRITER related condition, antepartum from Last 3 Months Results * [facility] US Comprehensive Single (06/17/2023 11:01 AM GREETING CARD WRITER) Anatomical Region Laterality Modality Ultrasound 06/17/2023 10:1 9 AM GREETING CARD WRITER Impressions 06/17/2023 11:20 AM GREETING CARD WRITER IMPRESSION ----- 1. Preston intrauterine at 19w [...] long and closed. Narrative 06/17/2023 11:20 AM GREETING CARD WRITER ?Comprehensive ----- Pat. Name: LAVINIA ST ? Study Date: ??06/17/2023 10:19am Pat. NO: ??[id number] ?Referring ??MD: TIARRA BUENO Site: ??[facility] ? Lock Setter: Susanna Huntley RDMS : ??1985 ?Age: ?? [...] lb 10 ? oz EFW by ?Hadlock ([id number]-FL) Head / Face / Neck Biometry: Tiller Man ? 5.4 ? mm CM ?4.5 ? [...] cava. Inferior vena cava. 3-vessel ? view. 1-ewynur-lmqkitj view. Cardiac position. Cardiac size. Cardiac rhythm. [...] medical record, and communicating with other health healthcare science specialist and/or care coordination. Procedure Note Janet Hoang MD - 06/17/2023 Comprehensive ----- Pat. Name: LAVINIA ST Study Date: 06/17/2023 10:19am Pat. NO: [id number] Referring MD: TIARRA BUENO Site: [facility] Lock Setter: Susanna YukoPAKO : 1985 Age: 37 ----- INDICATION ----- [...] 0 lb 10 oz EFW by Hadlock (PQJ-PC-MO-FL) Head / Face / Neck Biometry: Tiller Man 5.4 mm CM 4.5 mm Nasal bone [...] Superior venacava. Inferior vena cava. 3-vessel view. 5-yvnzsu-vswhplx view.Cardiac position. Cardiac size. Cardiac rhythm. Right [...] electronic medical record, andcommunicating with other health healthcare science specialist and/or carecoordination. IMPRESSION ----- 1. Preston intrauterine [...] cervix appears long and closed. Tiarra Milton [facility] US ORDERABLE S from Last 3 Months Care Teams Grounds Maintenance Manager Relationship Specialty Start Date End Date No Ref-Primary, Physician PCP - General 05/31/23
--- OUTSIDE RECORDS SUMMARY | 2023-09-02 07:17 | XMS_ITS | Encounter Summary ---
Author Name Unknown Organization [facility] Address [address] [place] [address] Care Team Providers Care Skip Pitman Name Role Phone No Ref-Primary, Physician Primary Care Provider Reason for Referral * Diagnostic Imaging Ultrasound (Routine) - Pending Review Specialty Diagnoses / Procedures Referred By Contac t Referred To Contact Radiology. Diagnoses related condition, antepartum Procedures [facility] US Comprehensive Single Tiarra Bueno MD [address] [address] Referral ID Status Reason Start Date Expiration Date V isits Requested Visits Authorized [id number] Pending Review 05/31/2023 05/30/2024 1 1 GER HEART Reason for Visit * Diagnostic Imaging Ultrasound (Routine) - Pending Review Specialty Diagnoses / Procedures Referred By Contac t Referred To Contact Radiology. Diagnoses related condition, antepartum Procedures [facility] US Comprehensive Single Tiarra Bueno MD [facility] [address] [place] [address] Referral ID Status Reason Start Date Expiration Date V isits Requested Visits Authorized [id number] Pending Review 05/31/2023 05/30/2024 1 1 Encounter Details Date Type Department Care Team (Latest Contact Info) Description 06/17/2023 10:04 AM MANAGER HEART - 06/17/2023 11:59 PM MANAGER HEART Hospital Encounter [facility] [address] [facility] [facility] [address] [place] [address] Tiarra Bueno MD [facility] [address] [place] [address] Janet Hoang MD [address] [facility] [address] [place], [place] [id number] related condition, antepartum Discharge Disposition: Home or [...] Procedure Name Priority Date/Time Associated Diagnosis Comments [facility] SINGLE Routine 06/17/2023 11:01 AM MANAGER HEART related condition, antepartum documented in this encounter Results * [facility] Single (06/17/2023 11:01 AM MANAGER HEART) Anatomical Region Laterality Modality Ultrasound 06/17/2023 10:1 9 AM MANAGER HEART Impressions 06/17/2023 11:20 AM MANAGER HEART IMPRESSION ----- 1. Preston intrauterine at 19w [...] long and closed. Narrative 06/17/2023 11:20 AM MANAGER HEART ?Comprehensive ----- Pat. Name: MACIEL LAVINIA ? Study Date: ??06/17/2023 10:19am Pat. NO: ??[id number] ?Referring ??MD: TIARRA VU Site: [facility] ? Cutter Woodwind Reeds: Susanna Huntley RDMS : ??1985 ?Age: ?? [...] lb 10 ? oz EFW by ?Hadlock ([id number]-FL) Head / Face / Neck Biometry: Marine Scientist ? 5.4 ? mm CM ?4.5 ? [...] cava. Inferior vena cava. 3-vessel ? view. 9-tscumf-pmuqhny view. Cardiac position. Cardiac size. Cardiac rhythm. [...] medical record, and communicating with other health early breastfeeding care specialist and/or care coordination. Procedure Note Janet Hoang MD - 06/17/2023 Comprehensive ----- Pat. Name: LAVINIA ST Study Date: 06/17/2023 10:19am Pat. NO: [id number] Referring MD: TIARRA BUENO Site: [facility] Cutter Woodwind Reeds: Susanna Huntley RDMS : 1985 Age: 37 [...] 0 lb 10 oz EFW by Hadlock (BDT-YJ-AS-FL) Head / Face / Neck Biometry: Marine Scientist 5.4 mm CM 4.5 mm Nasal bone [...] Superior venacava. Inferior vena cava. 3-vessel view. 7-txrvlu-bvwkpdn view.Cardiac position. Cardiac size. Cardiac rhythm. Right [...] electronic medical record, andcommunicating with other health early breastfeeding care specialist and/or carecoordination. IMPRESSION ----- 1. Preston [...] antepartum documented in this encounter Care Teams Skip Pitman Relationship Specialty Start Date End Date No Ref-Primary, Physician PCP - General 05/31/23 documented as of this encounter
--- OUTSIDE RECORDS SUMMARY | 2023-09-02 07:17 | XMS_ITS | Encounter Summary ---
Author Name Unknown Organization [facility] Address [address] [place] [address]. [place] [address] Care Team Providers Care Urban Planning Teacher Name Role Phone No Ref-Primary, Physician Primary Care Provider Encounter Details Date Type Department Care Team ([facility] st Contact Info) Description 05/30/2023 Medical Correspondence [facility] Info [facility] [address] [place] [id number] Scan, Non-Provider Social History Tobacco Use [...] on filedocumented in this encounter Care Teams Urban Planning Teacher Relationship Specialty Start Date End Date No Ref-Primary, Physician PCP - General 05/31/23 documented as of this encounter
--- OUTSIDE RECORDS SUMMARY | 2023-09-02 07:17 | XMS_ITS | Encounter Summary ---
Author Name Unknown Organization [facility] Address [facility] [place] [address] Care Team Providers Care Select Banker Name Role Phone No Ref-Primary, Physician Primary Care Provider Reason for Visit * Reason Comments Ultrasound L2-AMA Encounter Details Date Type Department Care Team (Late st Contact Info) Description 06/17/2023 10:45 AM FLOOR COVERER Office Visit [facility] [place] [address] [facility] [address] [place] [address] Tiarra Rose MD [facility] [address] [place] [address] Janet Hoang MD [address] [place] [address] [address] [place] [address] Primigravida of advanced maternal age [...] for details of today's visit. Janet Hoang R COVERER documented in this encounter Nursing Notes * Selena Lazcano, RN - 06/17/2023 10:45 AM CST Patient presents to [facility] for L2 at 19w1d due to AMA. Denies LOF, vaginal bleeding or cramping/contractions. SBAR given to [facility] MD, see their note in Epic. R COVERER documented in this encounter Plan of Treatment Not on file documented as of this encounter Visit Diagnoses Diagnosis Primigravida of advanced maternal age in second trimester- Primary documented in this encounter Care Teams Select Banker Relationship Specialty Start Date End Date No Ref-Primary, Physician PCP - General 05/31/23 documented as of this encounter
--- OUTSIDE RECORDS SUMMARY | 2023-09-02 07:17 | XMS_ITS | Encounter Summary ---
Author Name Unknown Organization [facility] Address [address] [place] [address] Care Team Providers Care Advertising Sales Consultant Name Role Phone No Ref-Primary, Physician Primary Care Provider Reason for Referral * Diagnostic Imaging Ultrasound (Routine) - Pending Review Specialty Diagnoses / Procedures Referred By Contac t Referred To Contact Radiology. Diagnoses related condition, antepartum Procedures [facility] US Comprehensive Single Tiarra Bueno MD [facility] [address] [place] [address] Referral ID Status Reason Start Date Expiration Date V isits Requested Visits Authorized [id number] Pending Review 05/31/2023 05/30/2024 1 1 L SAWYER * Consultation (Routine: Next available opening) - Pending Review Specialty Diagnoses / Procedures Referred By Contac t Referred To Contact Diagnoses related condition, antepartum Tiarra Bueno MD [facility] [address] [place] [address] [facility] [address] [place] [address] Referral ID Status Reason Start Date Expiration Date V isits Requested Visits Authorized [id number] Pending Review 05/31/2023 05/30/2024 1 1 Question Answer Preferred Location: [facility] [place] CASE 11/10/2023 Ultrasound Comprehensive US (>than 18 weeks GA) US PROC NONE MFM Issue Advanced Maternal Age *MUST request Genetic Counseling - AMA MFM MD Consultation (unrelated to Ultrasound findings): No Inflammatory Bowel Disease Clinic: Joint MFM and GI Consultation: No Chronic Kidney Disease: Joint INESM and Nephrology Consultation No Genetic Counseling Consultation: No fax [facility] - Tiarra Bueno - [phone] Comments There is no height or weight [...] plan with any benefit or coverage questions. L SAWYER Encounter Details Date Type Department Care Team (Latest Contact Info) Description 05/31/2023 Transcribe Orders [facility] [place] [address] [facility] [address] [place] [address] Tiarra Bueno MD [facility] [address] [id number] related condition, antepartum (Primary Dx) Social History [...] MFM US Comprehensive Single (06/17/2023 11:01 AM JEWEL SAWYER) Anatomical Region Laterality Modality Ultrasound 06/17/2023 10:1 9 AM JEWEL SAWYER Impressions 06/17/2023 11:20 AM JEWEL SAWYER IMPRESSION ----- 1. Preston intrauterine at 19w [...] long and closed. Narrative 06/17/2023 11:20 AM JEWEL SAWYER ?Comprehensive ----- Pat. Name: LAVINIA ST ? Study Date: ??06/17/2023 10:19am Pat. NO: ??[id number] ?Referring ??MD: TIARRA BUENO Site: ??[facility] ? Warehouse Production Worker: Susanna Huntley RDMS : ??1985 ?Age: ?? [...] lb 10 ? oz EFW by ?Hadlock ([id number]-[id number]-MA) Head / Face / Neck Biometry: Professional Bondsman ? 5.4 ? mm CM ?4.5 ? [...] cava. Inferior vena cava. 3-vessel ? view. 0-hehbhy-zjrbgxf view. Cardiac position. Cardiac size. Cardiac rhythm. [...] medical record, and communicating with other health day care aide and/or care coordination. Procedure Note Janet Hoang MD - 06/17/2023 Comprehensive ----- Pat. Name: LAVINIA ST Study Date: 06/17/2023 10:19am Pat. NO: [id number] Referring MD: TIARRA BUENO Site: [facility] Warehouse Production Worker: Susanna Huntley RDMS : 1985 Age: 37 [...] mm18w 6d Hadlock Humerus 28.2 mm19w 1d Dulec Weight Calculation: EFW 276 g44% Hadlock EFW (lb,oz) 0 lb 10 oz EFW by Hadlock (SEH-OC-RZ-FL) Head / Face / Neck Biometry: Professional Bondsman 5.4 mm CM 4.5 mm Nasal bone [...] Superior venacava. Inferior vena cava. 3-vessel view. 4-oxdjze-glzagyb view.Cardiac position. Cardiac size. Cardiac rhythm. Right [...] electronic medical record, andcommunicating with other health day care aide and/or carecoordination. IMPRESSION ----- 1. Preston intrauterine [...] antepartum documented in this encounter Care Teams Advertising Sales Consultant Relationship Specialty Start Date End Date No Ref-Primary, Physician PCP - General 05/31/23 documented as of this encounter
--- OUTSIDE RECORDS SUMMARY | 2023-09-02 07:17 | XMS_ITS | Encounter Summary ---
Author Name Unknown Organization [facility] Address [address] [place] [address] Care Team Providers Care Optical Engineering Manager Name Role Phone No Ref-Primary, Physician [...] filedocumented in this encounter Care Teams Optical Engineering Manager Relationship Specialty Start Date End Date No Ref-Primary, Physician PCP - General 05/31/23 documented as of this encounter
--- OUTSIDE RECORDS SUMMARY | 2023-09-02 07:17 | XMS_ITS | Encounter Summary ---
Author Name Unknown Organization [facility] Address [address] [place] [address] Care Team Providers Care Wire Coater Name Role Phone No Ref-Primary, Physician Primary [...] on filedocumented in this encounter Care Teams Wire Coater Relationship Specialty Start Date End Date No Ref-Primary, Physician PCP - General 05/31/23 documented as of this encounter
== END 2023-08-30 08:07 | disposition home or self-care (01) ==
LOC: NFLDREF 09-02 07:16
PROVIDERS: Visit Provider Obstetrics & Gynecology
DX: Z34.92 Encounter for supervision of normal pregnancy, unspecified, second trimester (principal)
CPT/HCPCS: 82951; 82952

== ENCOUNTER 2023-10-17 13:52 | Outpatient (CLI) | payer BC, SELFPAY ==
[2023-10-18 13:34] LABS: Strep B DNA Probe Negative (Negative)
[2023-10-18 13:42] LABS: Strep B Susceptibility Needed? No
== END 2023-10-17 13:53 | disposition home or self-care (01) ==
PROVIDERS: Visit Provider Registered Nurse
DX: Z34.93 Encounter for supervision of normal pregnancy, unspecified, third trimester (principal); Z3A.36 36 weeks gestation of pregnancy
CPT/HCPCS: 87081; 87653

== ENCOUNTER 2023-11-02 14:07 | Inpatient (IN) | payer BC, SELFPAY ==
[2023-11-02] VITALS (26 sets, daily range): BP systolic 99–134; BP diastolic 60–78; PULSE 70–100; RESP 16–18; TEMP 36.9–37.2; O2SAT 81–100; BMI 28.8
--- OUTSIDE RECORDS SUMMARY | 2023-11-02 13:22 | XMS_ITS | Referral Summary ---
Author Organization [facility] Address [address] [place] [address] Care Team Providers Care Recycling Or Rubbish Collector Name Role Phone No Ref-Primary, Physician Primary [...] - Plan of Treatment Not on file Care Teams Recycling Or Rubbish Collector Relationship Specialty Start Date End Date No Ref-Primary, Physician PCP - General 05/31/23
--- OUTSIDE RECORDS SUMMARY | 2023-11-02 13:22 | XMS_ITS | Clinical Summary ---
Author Organization [facility] Address [address] [place] [address] Care Team Providers Care Architectural Modeler Name Role Phone No Ref-Primary, Physician Primary [...] PAP 2006 COVID-19 Vaccine ( season) 2023 MATERNAL SCREENING DISCUSSION 04/14/2023 PHQ-2 (once per calendar year) 2023 OBGCT (OB) 07/21/2023 GROUP B STREP SCREENING 10/13/2023 INFLUENZA VACCINE (Season Ended) 2024 02/15/2012 IPV IMMUNIZATION Completed 01/07/1991, 06/1987, 04/22/1986, Additional [...] ( & 60+) (No Doses Required) Completed Care Teams Architectural Modeler Relationship Specialty Start Date End Date No Ref-Primary, Physician PCP - General 05/31/23
[2023-11-02 13:56] LABS: Amnisure Rom* POSITIVE
--- NOTE | 2023-11-02 16:13 | W.PM.LDBA ---
Subjective History of Present Illness Time Seen by Provider: 16:13 Date Seen: 11/02/23 Narrative: Patient is being admitted to Labor and Delivery for PROM. She reports LOF around 1230 pm. She is a 37 year old at 38.6 weeks gestation. Her full history and physical was dictated by Dr. Partida on 10/23/22. Please see this for details. Active movement. Denies vaginal bleeding or abnormal vaginal discharge. She is having frequent contractions on the tocometer but they palpate soft and she rarely feels them. SVE on admission: 50/-3, moderately soft, posterior. Unchanged after 2 hour recheck. Specific Issues/Plans H&P by CGM on 10/24/23 #AMA Aspirin 81 mg Cell free DNA: declined #Depression and anxiety Doing well on sertraline and bupropion. Sertraline increased to 200 mg daily at 32 weeks. #Bilateral complex ovarian cysts, suspect endometriomas #History of genital herpes, not reported at 1st OB, noted on problem list Valtrex at 36 weeks. Prescription submitted on 10/17/2023. #Elevated glucola - 1 hour GTT 188 3 hr GTT entirely normal (one value actually low) #History of infertility, failed multiple Clomid cycles. Spontaneous ! Ultrasounds: Level 2 ultrasound: 06/17/23: Posterior placenta, not previa, 3 vessel cord, normal insertion. SDP:5.8cm. EFW: 44%, normal anatomy. Cervix closed and lon.5cm Tdap: 09/04 Flu:Declines Covid: Declines 34wk hgb 10/10/23: 12.5 GBS: Negative Pap 2021: NIL/+ HPV, not 16/18 colp 11/2021: benign pap 04/05/23: NIL/+ HPV, not 16/18 colpo: Declined to do it in . Will perform OB - Problem Based A/P Additional Plan (1) AMA (advanced maternal age) multigravida 35+: Problem details: ; DUE DATE: 11/10/2023 Status: Acute (2) Anxiety: Problem details: bupropion to 300 mg daily, increased sertraline to 200mg daily Status: Acute (3) : Status: Acute (4) Infertility, anovulation: Status: Acute Plan - Patient is PROM, confirmed with clinical history and on amnisure. - Advised titrating pitocin for labor induction due to unchanged cervical exam after two hours. Patient is happy with this plan - Pain management: Will want epidural eventually. OB Exam Physical Exam Vital signs: Temp Resp BP Pulse Ox 98.9 F 16 134/69 98 11/02/23 13:29 11/02/23 13:29 11/02/23 13:29 11/02/23 13:29
[2023-11-02 16:26] LABS: Basophils Absolute Auto 0.02 K/uL (0.00-0.30); Basophils Percent Auto 0.2 % (0.0-3.0); Eosinophils Absolute Auto 0.08 K/uL (0.00-0.50); Eosinophils Percent Auto 0.9 % (0.0-7.0); Hematocrit 37.8 % (33.0-51.0); Hemoglobin* 12.8 gm/dL (12.0-16.0); Immature Granulocytes Abs Auto 0.04 K/uL (0.00-0.30); Immature Granulocytes Pct Auto 0.4 %; Lymphocytes Percent Auto 16.3 % (20-44); Mean Corpuscular HGB Conc 34 gm/dL (32-36); Mean Corpuscular Hemoglobin 34 pg (26-34); Mean Corpuscular Volume 100 fL (80-100); Neutrophils Percent Auto 74.2 % (42.0-72.0); Platelet Count* 223 K/uL (140-440); RDW Coefficient of Variation % 12.6 % (11.5-15.5); Red Blood Count 3.78 m/uL (4.00-5.20); White Blood Count* 9.25 K/uL (4.50-11.00)
[2023-11-02] MEDS: LACTATED RINGERS 1000 ML 1,000 ML 124 ML IV (16:41)
[2023-11-02] MEDS: OXYTOCIN 30 unit/500 ML in NS 30 UNIT/500 ML BAG IVPB (16:42)
[2023-11-02 16:50] LABS: Slide Review Reflex No
[2023-11-02] MEDS: LACTATED RINGERS 1000 ML 1,000 ML 999 ML IV (22:42)
[2023-11-02] MEDS: fentaNYL 250 MCG/5 ML inj 100 MCG EPIDURAL (22:55)
[2023-11-02] MEDS: ROPIVACAINE 0.2% 100 ml 100 ML 12 MG EPIDURAL (23:00)
[2023-11-02] MEDS: LIDOCAINE 2% (PF) 5 ML VIAL EPIDURAL (23:01)
--- NOTE | 2023-11-02 23:15 | PM.ANBPRC ---
[facility] Medical History Infertility, anovulation ?N97.0 - Female infertility associated with anovulation (ICD-10) Infertility, female ?N97.9 - Female infertility, unspecified (ICD-10) Positive test for human papillomavirus (HPV) Genital herpes simplex ?A60.00 - Herpesviral infection of urogenital system, unspecified (ICD-10) Fertility testing ?Z31.41 - Encounter for fertility testing (ICD-10) Depressed mood ?R45.89 - Other symptoms and signs involving emotional state (ICD-10) Anxiety (01/2019) ?F41.9 - Anxiety disorder, unspecified (ICD-10) Surgical History H/O colposcopy with cervical biopsy (07/06/21) ?Z98.890 - Other specified postprocedural states (ICD-10) Status post colposcopy (11/16/21) ?Z98.890 - Other specified postprocedural states (ICD-10) Family History Father A-fib Aunt Colon cancer Maternal Grandmother Colon cancer Social History Narrative: Cis-gender, heterosexual, woman Relationship status: , remarried 10/11/2021. 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 What is your current living situation?: I presently have a place to live Problems where you live: no known problems In the past 12 months, utilities in danger of being shut off: no In past 12 months, lack of transportation kept you from medical appts, meetings, work, or getting things needed for daily living: no In the past 12 mos, have been you worried that your food would run out before you had money to buy more?: never true In the past 12 mos, the food you bought just didn't last and you didn't have money to buy more?: never true Smoking Status: Never smoker How often does anyone, including family, friends and others, physically hurt you: unable to answer How often does anyone, including family, friends and others, insult or talk down to you: unable to answer How often does anyone, including family, friends and others, threaten you with harm: unable to answer How often does anyone, including family, friends and others, scream or curse at you: unable to answer Little interest or pleasure in doing things: several days Feeling down, depressed, or hopeless: several days Meds Home Medications and Allergies Home Medications ?Medication ?Instructions ?Recorded ?Confirmed ?Type docosahexaenoic acid 200 mg 200 mg PO DAILY 04/05/23 11/02/23 History capsule ( DHA) aspirin 81 mg tablet,delayed 81 mg PO QDAY 05/30/23 11/02/23 History release (Adult Aspirin Regimen) acetaminophen 500 mg tablet 1,000 mg PO Q6H PRN 08/22/23 11/02/23 History (Tylenol Extra Strength) Allergies Allergy/AdvReac Type Severity Reaction Status Date / Time No Known Allergies Allergy Verified 11/02/23 21:43 Results Labs Labs: Laboratory Results - last 24 hr 11/02/23 11/02/23 16:18 Unknown WBC 9.25 RBC 3.78 L Hgb 12.8 Hct 37.8 MCV 100 MCH 34 MCHC 34 RDW Coeff of Caroline 12.6 Plt Count 223 Neut % (Auto) 74.2 H Lymph % (Auto) 16.3 L [place] % (Auto) 8.0 Eos % (Auto) 0.9 Baso % (Auto) 0.2 Neut # (Auto) 6.90 Lymph # (Auto) 1.50 [place] # (Auto) 0.70 Eos # (Auto) 0.08 Baso # (Auto) 0.02 Abs Immat Gran (auto) 0.04 Imm/Tot Granulo (auto) 0.4 Membrane Rupture POSITIVE Blood Type A Positive Antibody Screen NEGATIVE Vital Signs Vital Signs: Last Vital Signs Temp 98.7 F 11/02/23 21:17 Pulse 88 11/02/23 23:10 Resp 16 11/02/23 21:17 BP 127/74 11/02/23 23:10 Pulse Ox 100 11/02/23 22:56 Weight: 78.471 kg Height: 165.1 cm Anesthesia Procedures Epidural Insertion Patient Location: OB Start Time: : Stop Time: : Start Date: 11/02/23 Stop Date: 11/02/23 Reason for Block: primary anesthetic Patient Position: sitting Performed By: Juan Benjamin Preanesthetic Checklist: IV checked, risks and benefits discussed, surgical consent, monitors and equipment checked, pre-op evaluation, timeout performed and anesthesia consent Prep: chlorhexidine gluconate Monitoring: blood pressure monitoring, network support administrator, continuous pulse oximetry and heart rate Approach: midline Vertebral Space: lumbar (1-5) Needle Type: Tuohy needle Injection Technique: continuous catheter Needle gauge: 17 Needle Length (cm): 10 cm Needle Insertion Depth (cm): 6 Catheter Gauge: 19 Catheter Type: multi-orifice Catheter at skin depth (cm): 12 Test Dose Result: negative and lidocaine 1.5% with epinephrine 1 to 200,000 Events: other
[2023-11-03] VITALS (40 sets, daily range): BP systolic 97–125; BP diastolic 59–77; PULSE 73–96; RESP 16–18; TEMP 36.6–36.9; O2SAT 95–100
--- NOTE | 2023-11-03 00:45 | PM.OBPNL ---
Subjective Time Seen by Provider: 00:45 Date Seen: 11/03/23 Narrative: Patient had cervical exam s/p epidural placement at 2300 and cervix was examined by RN. I was requested to come evaluate due to uncertain presentation. Pitocin was discontinued pending assessment. Patient comfortable in bed upon arrival. SVE: 475/-2, soft, midposition. Face presentation. I am able to palpate nose and part of the lips. BSUS confirms face presentation. Mentum posterior. Discussed malpresentation with patient. This is an extremely rare presentation but unfortunately, it is incompatible with vaginal delivery. There is also no way for me to rectify the malpositioning. I recommended delivery. The patient was consented for section and blood. She understands that the four main categories of risk include pain, bleeding, infection, and damage to surrounding structures. Pain will be managed intraoperative with her epidural. Postoperatively, she will receive at TAP block, ibuprofen, tylenol, and oxycodone. Regarding infection, she understands that we will be delivering appropriate antibiotics, however that the risk of infection following section still is approximately 5%. She understands that though the risk is very low that there is always a risk of damage to the bladder, uterus, ovaries, fallopian tubes, bowels, ureters, or even the fetus. She understands that most injuries can be addressed at the time of surgery, however, such an injury may require additional surgeries to fix. Lastly, she understands that a section carries a risk of bleeding, and that while this bleeding can be addressed with multiple medical and surgical modalities (including hysterectomy), that there is the possibility of needing a blood transfusion. Lastly, she understands that a section does increase risks for future pregnancies and deliveries including, but not limited to, the risk of uterine rupture or placenta accreta. Patient reports that this will be her only . We also reviewed postoperative expectations and recovery course. Lavinia and Santana were reassured by the counseling and want to proceed with the recommended mode of delivery. All questions answered to satisfaction. Consent signed and OR team notified. Hgb/plt on admission: tracing: Baseline: Cat II with intermittent lates and variables since epidural placement and due to tachysystole. Resolves with repositioning and overall improved with discontinuation of Pitocin. Moderate variability and accelerations noted Objective Vital Signs: Last Vital Signs Temp 98.7 F 06/22/24 21:17 Pulse 74 11/03/23 00:43 Resp 16 11/02/23 21:17 BP 122/77 11/03/23 00:43 Pulse Ox 100 11/02/23 22:56 Pelvic Exam Dilation (cm): 4 Effacement (%): 75 Station: -2
--- NOTE | 2023-11-03 01:04 | PM.OBPRCCS ---
Procedure Time Seen by Provider: 01:04 Date of procedure: 11/03/23 Will [facility] bill your pro fee for this procedure?: Yes Procedure Description: Section not Complications: DELIVERY BY SECTION Date of Service: 11/03/23 Delivery time: 121 Summary: Admitted for PROM at 38.6w, Primary Lower uterine transverse section, Pfannenstiel, Closed with sutures, QBL 1007 cc, Complications: Intraoperative hemorrhage due to uterine atony and large bleeding vessels on the lower uterine segment Findings: [place] posterior face presentation. face with anticipated swelling and bruising. Tight nuchal cord x 2. Thin meconium. Normal uterus, bilateral ovaries and tubes Weight 3200 g. Primary Indication: 1. malpresentation Procedures: Primary Lower uterine transverse section Specimens Removed: Placenta Surgeon: Tiarra Rose MD Anesthesia: Epidural and TAP Report: Prophylactic antibiotic, 2 g of Ancef and 500 mg of Azithromycin was given before patient was taken to OR. After arrival to the operating room patient was placed in the supine position with left lateral tilt after redosing of epidural anesthesia. Laparotomy A pfannenstiel incision was made through the anterior abdominal wall with #10 scalpel approximately 2 cm above the pubic symphysis. The incision was extended sharply with the #10 scalpel through the subcutaneous tissue to the level of fascia. The fascia was entered sharply with a #10 scalpel (Pfannenstiel) in the midline and extended in semi-elliptical fashion with digits. The underlying muscles were dissected off the overlying fascia superiorly using blunt dissection. The rectus muscles were in the midline bluntly with digits. The peritoneum was then entered bluntly. The peritoneal incision was then extended superiorly and inferiorly under direct visualization with care being taken to avoid bladder and bowel. No adhesions were noted. The peritoneal incision was enlarged bluntly by lateral traction from the surgeon's and rn first assistant's hand. Phong retractor was inserted into the abdomen. Delivery A bladder flap was not developed as bladder was low of the uterine segment. A low transverse hysterotomy was made then with #10 scalpel and extended laterally and cephalad with fingers in a low transverse fashion with Manu Romeo technique with care being taken to avoid injury to the fetus. The amniotic cavity (membrane) was then entered with spontaneous rupture of membrane, and the amniotic fluid was noted to be thin meconium, fetus was delivered cephalic. With delivery of the baby, no extension was noted. Placenta was delivered spontaneously with steady traction on cord and manual separation of placenta from uterine wall. Closure Uterine cavity was cleaned after placental delivery with lap sponge x 2. The hysterotomy was closed in two layers with stitches using 0 vicryl with continuous locking stitches and 0 monocryl in a continuous non locking manner. One figure of 8 placed at midline. Hemostasis was achieved as needed with electrocautery. The ovaries/tubes/uterine surface were evaluated. They were found to be normal. Phong retractor removed and hemostasis was confirmed again. Fascia was closed with running stitches using 0 vicryl. Subcutaneous layer was irrigated. Hemostasis was checked for and found to be adequate. The subcutaneous layer was closed with running 2-0 vicryl sutures. The skin was closed with 4-0 vicryl subcuticular sutures. The incision was cleaned, exofin applied, and Mepilex dressing placed. The procedure was considered terminate at this time. Intraoperative Complications: Intraoperative hemorrhage due to uterine atony and large bleeding vessels on lower uterine segment QBL: 1007 cc Uterotonics: 40u of pitocin and 1g of TXA Disposition: The patient tolerated the procedure well. She was recovered in Obstetric PACU for close monitoring in stable condition, with a contracted uterus and normal transvaginal bleeding. The infant was sent to mother?s bedside. Attempted to obtain cord gases but unable to technically. The placenta was sent to pathology for: Unscheduled delivery, thin meconium. Debrief with OR team performed and specimen reviewed at the conclusion of the procedure.
[2023-11-03] MEDS: CEFAZOLIN 2 GM in 0.9 % SODIUM CHLORIDE Mini-bag 100 ML IVPB (01:12)
[2023-11-03] MEDS: TRANEXAMIC ACID 100 MG/ML INJ 1000 MG IV (01:27)
[2023-11-03] MEDS: AZITHROMYCIN 500 MG in 0.9 % SODIUM CHLORIDE 250 ml 250 ML 255 MG IVPB (01:35)
[2023-11-03] MEDS: KETOROLAC 30 MG/ML inj IVP ×4 (01:55→20:12)
--- NOTE | 2023-11-03 02:41 | W.ANESCHARGE ---
Anesthesia Charges Start Date/Time Anesthesia Start Date: 11/03/23 Anesthesia Start Time: 01:05 Stop Date/Time Anesthesia Stop Date: 11/03/23 Anesthesia Stop Time: 02:30 Summary Emergency: PROTEIN SPECIALIST
--- NOTE | 2023-11-03 02:41 | W.PM.NB ---
Nerve Block Nerve Block Time Seen by Provider: 02:20 Date Seen: 11/03/23 Type of block requested by surgeon for post-operative analgesia: TAP Side: bilateral Time out performed: Yes Verification of patient name: Yes Verification of date of : Yes Site marking: not applicable Name of person performing procedure: [email or web address] Continuous monitoring Was continuous monitoring of O2 sat, B/P, laboratory monitor, recorded every 15 minutes?: Yes Procedure Checklist: sterile prep and needles Ultrasound guided. Images saved: Yes Medications given in 5ml increments after negative aspiration: Marcaine %: 0.25 mL: 30 Needle gauge: 20 and Exparel mL: 10 Needle gauge: 20 Patient tolerated procedure well: Yes Block Charges Block Charge (with Pro Fee): TAP Bilateral Use of Ultrasound Machine for Block: Yes- US Guidance/pain block
[2023-11-03] MEDS: ACETAMINOPHEN 500 MG TABLET 1000 MG PO (04:14)
[2023-11-03] MEDS: LACTATED RINGERS 1000 ML 1,000 ML 125 ML IV (04:15)
[2023-11-03 06:57] LABS: Hemoglobin* 10.7 gm/dL (12.0-16.0)
[2023-11-03] MEDS: DOCUSATE SODIUM 100 MG CAPSULE PO (08:07)
[2023-11-03] MEDS: buPROPion XL 150 MG TABLET 300 MG PO (10:47)
[2023-11-03] MEDS: SERTRALINE 100 MG TABLET 200 MG PO (10:47)
[2023-11-03] MEDS: FERROUS SULFATE 325 MG TABLET PO (10:47)
--- NOTE | 2023-11-03 11:29 | P.OBPN_ITS ---
OB - PN:Subj Subjective Time Seen by Provider: 11:29 Date Seen: 11/03/23 Narrative: Overnight patient had no complaints. Her pain is well controlled on oral pain medications. She is tolerating a regular diet. She has passed flatus. She is not ambulating without difficulty. Lochia is scant. She is urinating with holley. Patient denies chest pain, SOB, n/v, headache, RUQ pain, vision changes, dizziness. OB - PN: Obj Exam Physical Exam: Vital signs: Temp Pulse Resp BP Pulse Ox O2 Del Method 98.4 F 75 16 107/66 98 Room Air 11/03/23 08:15 11/03/23 08:15 11/03/23 10:39 11/03/23 08:15 11/03/23 08:15 11/03/23 08:15 Narrative: Physical exam: General: No acute distress Psych: Alert and oriented x4, full affect HEENT: Normocephalic, atraumatic Neck: No cervical adenopathy, no thyromegaly Heart: Regular rate and rhythm, no murmur rub or gallop Lungs: Clear to auscultation bilaterally Abdomen: Normoactive bowel sounds, soft, no tenderness, rebound, or guarding. Uterus firm 2 cm below the umbilicus. Incision: Dressing clean dry and intact Skin: No lesions or rashes Lower extremities: No edema or erythema Pelvic exam: Moderate lochia Urinary Catheter Management: Urethral: Cath placed during this visit: no Reason for continuing: surgical procedure OB - PN: Obj Data Labs Labs: Laboratory Results - last 24 hr 11/02/23 11/02/23 11/03/23 16:18 Unknown 06:44 WBC 9.25 RBC 3.78 L Hgb 12.8 10.7 L Hct 37.8 MCV 100 MCH 34 MCHC 34 RDW Coeff of Caroline 12.6 Plt Count 223 Neut % (Auto) 74.2 H Lymph % (Auto) 16.3 L [place] % (Auto) 8.0 Eos % (Auto) 0.9 Baso % (Auto) 0.2 Neut # (Auto) 6.90 Lymph # (Auto) 1.50 [place] # (Auto) 0.70 Eos # (Auto) 0.08 Baso # (Auto) 0.02 Abs Immat Gran (auto) 0.04 Imm/Tot Granulo (auto) 0.4 Membrane Rupture POSITIVE Blood Type A Positive Antibody Screen NEGATIVE OB - PN: A/P Delivery Assessment and Plan (1) delivery delivered: Status: Acute Assessment and Plan: Postoperative/post delivery Review: - Admitted for: PROM - Surgical procedure: Primary low transverse delivery for malpresentation - Skin incision: Pfannenstiel - Closure: Sutures - Quantitative blood loss: 1007 mL - Intraoperative Complications: Hemorrhage due to atony and large bleeding vessels Postoperative care: - Diet: Advance as tolerated - Fluid: Encourage oral intake - Activity: Encourage ambulation and incentive spirometry - Pain: Acetaminophen, Ibuprofen, and oxycodone - DVT prophylaxis: SCDs and TEDs when not ambulating. (2) Acute blood loss anemia: Status: Acute Assessment and Plan: - Preop hgb 12.8 - Post op hgb 10.7 - UOP: 0.4cc/kg/hr - VSS - PO iron Q48H ordered (3) AMA (advanced maternal age) multigravida 35+: Problem details: ; DUE DATE: 11/10/2023 Status: Acute (4) Anxiety: Problem details: bupropion to 300 mg daily, increased sertraline to 200mg daily Status: Acute (5) Infertility, anovulation: Status: Acute Plan - POD#0 from primary delivery - Milestones needed: Holley removal, ambulation
[2023-11-04 00:23] VITALS: BP 100/62; PULSE 73; RESP 16; TEMP 36.6; O2SAT 99
[2023-11-04] MEDS: ACETAMINOPHEN 500 MG TABLET 1000 MG PO ×4 (00:26→18:26)
[2023-11-04] MEDS: OXYCODONE 5 MG TABLET PO ×3 (00:26→22:15)
[2023-11-04] MEDS: KETOROLAC 30 MG/ML inj IVP ×2 (02:16→08:07)
[2023-11-04 06:27] LABS: Hemoglobin* 9.8 gm/dL (12.0-16.0)
[2023-11-04 08:01] VITALS: BP 95/59; PULSE 80; RESP 16; TEMP 36.8; O2SAT 96
[2023-11-04] MEDS: DOCUSATE SODIUM 100 MG CAPSULE PO (08:07)
[2023-11-04] MEDS: SERTRALINE 100 MG TABLET 200 MG PO (08:08)
[2023-11-04] MEDS: buPROPion XL 150 MG TABLET 300 MG PO (08:08)
--- NOTE | 2023-11-04 08:31 | P.OBPN_ITS ---
OB - PN:Subj Subjective Date Seen: 11/04/23 Patient comments OB post-: no complaints, pain well controlled, tolerating diet and flatus present [place] status: bottle, and doing well feeding status: breast and bottle feeding Narrative: Lavinia feels well.? Her pain is well controlled with current medications.? She has no new complaints.? Urinary output is adequate and she is voiding without difficulty.? Has a good appetite, is tolerating a general diet, is passing flatus, and has not yet had a bowel movement.? Has scant amount of rubra lochia.? She is ambulating well.?Her hemoglobin is down to 9.8 today but was started on PO iron supplement yesterday. Denies feeling light headed, dizzy or fatigued. OB - PN: Obj Exam Physical Exam: Vital signs: Temp Pulse Resp BP Pulse Ox O2 Del Method 98.2 F 80 16 95/59 L 96 Room Air 11/04/23 08:01 11/04/23 08:01 11/04/23 08:01 11/04/23 08:01 11/04/23 08:01 11/04/23 08:01 Narrative: GENERAL APPEARANCE:? normal affect, alert, no distress? MOOD:? appropriate? CHEST:? clear to auscultation and percussion? HEART:? regular rate and rhythm? ABDOMEN:? soft, non-tender the uterine fundus is U/2 and is appropriate for the stage of recovery. Incision dressing is clean dry and intact. It will be removed today.?? EXTREMITIES:? normal and no edema? Urinary Catheter Management: Urethral: Cath placed during this visit: yes, but has since been removed by the nurse Reason for continuing: decision to DC catheter Removal date: 11/03/23 Removal time: 13:00 OB - PN: Obj Data Labs Labs: Laboratory Results - last 24 hr 11/04/23 06:07 Hgb 9.8 L OB - PN: A/P Delivery Assessment and Plan (1) Acute blood loss anemia: Status: Acute (2) Anxiety: Problem details: bupropion to 300 mg daily, increased sertraline to 200mg daily Status: Acute (3) care following delivery: Status: Acute Plan day: 1 Plan: routine care Comments: Anticipate discharge home tomorrow or the following day. PO iron supplementation EOD.
[2023-11-04] MEDS: IBUPROFEN 600 MG TABLET PO ×2 (14:21→22:12)
[2023-11-04 17:33] VITALS: BP 110/70; PULSE 83; RESP 16; TEMP 36.8; O2SAT 98
[2023-11-05 00:41] VITALS: BP 105/63; PULSE 81; RESP 16; TEMP 36.7
[2023-11-05] MEDS: ACETAMINOPHEN 500 MG TABLET 1000 MG PO ×2 (00:45→08:01)
[2023-11-05] MEDS: OXYCODONE 5 MG TABLET PO (00:46)
[2023-11-05] MEDS: IBUPROFEN 600 MG TABLET PO (04:04)
--- NOTE | 2023-11-05 07:37 | PM.OBDSVD1 ---
DS: Providers Provider Date Seen: 11/05/23 Date of admission: 11/02/23 14:07 Primary care physician: Not a Local Provider Admitting Clinician: Tiarra Rose MD Attending Physician on discharge: Raquel Maher CNM DS: Diagnosis Discharge Diagnosis (1) care following delivery: Status: Acute (2) Acute blood loss anemia: Status: Acute Exam Narrative: Exam Narrative: GENERAL APPEARANCE:? normal affect, alert, no distress MOOD:? appropriate CHEST:? clear to auscultation HEART:? regular rate and rhythm ABDOMEN:? soft, non-tender the uterine fundus is at Umbilicus, Midline and is appropriate for the stage of recovery. EXTREMITIES:? normal and trace edema INCISION: Healing well, no surrounding erythema, abnormal induration or discharge Const: Vital Signs, click to edit/add: Vital Signs - 24 hr 11/04/23 08:01 11/04/23 17:33 11/05/23 00:41 Temperature 98.2 F 98.2 F 98.1 F Pulse Rate [Pulse Oximeter] 80 83 81 Respiratory Rate 16 16 16 Blood Pressure [Ri ght Arm] 95/59 L 110/70 105/63 Pulse Oximetry 96 98 Oxygen Delivery Me thod Room Air Room Air Room Air Documenting provider has reviewed patient's vital signs: yes OB - DS: Summary Hospital Course Hospital Course: Lavinia is a 37 y.o. G 1 P 1 who was admitted to [facility] for PROM. ?She had a section that was complicated by PPH of 1007 cc. The patient feels well. ?The pain is well controlled with current medications. ?She has no new complaints. ?She is formula feeding. the patient has done well.? Vitals have been stable.? She has remained afebrile.? Has a good appetite, is tolerating a general diet. ?She is voiding without difficulty.? She is passing gas and has not had a bowel movement.? She is ambulating and denies any dizziness.? Has small amount of rubra lochia. She is undecided for prevention. Problems: Anemia plan: Discharge home with baby. Follow up in 2 weeks and 6 weeks. , may see if needed Hgb 9.8. Iron supplement ordered orally every other day Peripartum Data delivery method: Primary C/S; Labored Procedures: Procedures Operation Date: 11/03/23 01:00 Actual Procedure Side Surgeon p Section Tiarra Rose MD complications: none [place] Infant Gender: Male Infant A Gender: Male Infant Discharge Plan: Home Status at Discharge Functional status at discharge: independent ambulation Overall status at discharge: patient is progressing back to baseline Time Spent with Patient Time attestation: Total time spent providing and/or coordinating discharge services: Time spent: Less than 30 minutes Discharge Plan Discharge Disposition: Home, Self-Care Date of Admission: 11/02/23 14:07 Attending Provider on Discharge: Raquel Maher Primary Care Provider: Provider,Not a Local Condition: Stable Anticipated Discharge Date/Time: 11/05/23 12:00 Discharge Medications: New acetaminophen 500 mg Tablet 1,000 mg PO Q6H PRN (Reason: Pain) Qty: 0 0RF ferrous sulfate 325 mg (65 mg iron) Tablet 325 mg PO Q48H Qty: 90 0RF docusate sodium 100 mg Capsule 100 mg PO DAILY Qty: 90 0RF ibuprofen 600 mg Tablet 600 mg PO Q6H PRN (Reason: Pain) Qty: 60 0RF oxycodone 5 mg Tablet 5 - 10 mg PO Q4H PRN (Reason: Pain) Qty: 15 0RF Continued DHA 200 mg capsule 200 mg PO DAILY bupropion HCl [Wellbutrin XL] 300 mg tablet extended release 24 hr 300 mg PO QAM Qty: 90 3RF Rx Instructions: one tablet daily sertraline 200 mg capsule 200 mg PO QDAY Qty: 90 3RF valacyclovir 500 mg tablet 500 mg PO BID Qty: 60 1RF Discontinued aspirin [Adult Aspirin Regimen] 81 mg tablet,delayed release (DR/EC) 81 mg PO QDAY acetaminophen [Tylenol Extra Strength] 500 mg tablet 1,000 mg PO Q6H PRN sertraline 100 mg tablet 200 mg PO QDAY Qty: 180 3RF Discharge Orders: Discharge Order (Routine); Ordered 11/05/23 Ordered By: Raquel Maher Patient Education: OB Over the Counter Medication Information, OB /Bottle Feeding Additional Instructions: Discharge instructions were reviewed with the patient including signs and symptoms of infection and home going medications Lifting Restrictions: 20 pounds for 6 weeks No not submerge incision under water X 2 weeks? Nothing vaginally for 6 weeks: no tampons or intercourse Do not drive while taking narcotic pain medication(s) Off Work or School for 8 weeks 2-week visit: incision check, discuss infant feeding concerns, review control options and screen for anxiety/depression. 6-week visit for an annual exam. consultation services are available to all mothers and babies for the first year after delivery.? To make an appointment, please call [phone]. Activity Level: Activity as Tolerated Discharge Diet: Regular Follow Up Appointments: [facility] [Provider Group] Forms: [employer] Info Instructions
[2023-11-05] MEDS: FERROUS SULFATE 325 MG TABLET PO (08:01)
[2023-11-05] MEDS: SERTRALINE 100 MG TABLET 200 MG PO (08:02)
[2023-11-05] MEDS: DOCUSATE SODIUM 100 MG CAPSULE PO (08:02)
[2023-11-05] MEDS: buPROPion XL 150 MG TABLET 300 MG PO (08:02)
[2023-11-05 08:08] VITALS: BP 97/63; PULSE 79; RESP 16; TEMP 36.7; O2SAT 97
[2023-11-05 18:56] LABS: Rapid Plasma Reagin (RPR) Non Reactive (Non Reactive)
== END 2023-11-05 12:35 | disposition home or self-care (01) | DRG 540 ==
LOC: OB OUT 14:07 → OB 14:07
PROVIDERS: Admitting Provider Obstetrics & Gynecology; Visit Provider Obstetrics & Gynecology
PROC: 10D00Z1 Extraction of Products of Conception, Low, Open Approach (ICD-10-PCS; CPT 59514; principal; 2023-11-03 00:45)
DX: O42.02 Full-term premature rupture of membranes, onset of labor within 24 hours of rupture (principal); O76 Abnormality in fetal heart rate and rhythm complicating labor and delivery; O32.3XX0 Maternal care for face, brow and chin presentation, not applicable or unspecified; O99.344 Other mental disorders complicating childbirth; F32.A Depression, unspecified; F41.9 Anxiety disorder, unspecified; O98.32 Other infections with a predominantly sexual mode of transmission complicating childbirth; A60.00 Herpesviral infection of urogenital system, unspecified; G89.18 Other acute postprocedural pain; O99.02 Anemia complicating childbirth; D62 Acute posthemorrhagic anemia; Z37.0 Single live birth; Z3A.38 38 weeks gestation of pregnancy
CPT/HCPCS: 01967; 01968; 36415; 64488; 76815; 76942; 84112; 85018; 85025; 86592; 86850; 86900; 86901; 88307; 99140; A9270; C9290; J0456; J0665; J0690; J1100; J1885; J2274; J2371; J2405; J2590; J2795; J3010; J7050; J7120

== ENCOUNTER 2025-03-04 10:15 | Outpatient (CLI) | payer BC, SELFPAY ==
[2025-03-06 20:28] LABS: HPV Source Cervix
[2025-03-08 20:02] LABS: HPV Genotype 16 by TMA Not Detected; HPV Genotype 18/45 by TMA Not Detected
[2025-03-10 11:00] LABS: Pap Test Digital Imaging Done; Pap Test Reviewed by Pathologi Done
== END 2025-03-04 10:16 | disposition home or self-care (01) ==
PROVIDERS: PCP Physician Assistant Medical; Visit Provider Registered Nurse
DX: Z12.4 Encounter for screening for malignant neoplasm of cervix (principal); Z00.00 Encounter for general adult medical examination without abnormal findings; Z13.1 Encounter for screening for diabetes mellitus; R23.2 Flushing
CPT/HCPCS: 80061; 82947; 84443; 87624; 87625; 88141; 88142; 88175

== ENCOUNTER 2025-04-05 08:58 | Outpatient (CLI) | payer BC, SELFPAY | END 2025-04-05 08:59 | disposition home or self-care (01) | LOC: NFLDREF 04-10 17:12 | PROVIDERS: PCP Physician Assistant Medical; Referring Provider Physician Assistant Medical; Visit Provider Physician Assistant Medical | DX: Z31.9 Encounter for procreative management, unspecified (principal) | CPT/HCPCS: 83520 ==